=== PATIENT | female | born 2000 | race Caucasian/White ===

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

== ENCOUNTER 2024-08-21 08:47 | Outpatient (REF) | payer BC, SELFPAY ==
[2024-08-21 15:57] LABS: HCT 41.1 % (36.0-46.0); HGB 14.5 g/dL (11.2-15.7); MCH 31.1 pg (27.0-33.0); MCHC 35.3 % (32.0-36.0); MCV 88 fL (80-95); Platelet Count 282 10^3/uL (130-400); RBC 4.66 10^6/uL (3.93-5.22); RDW 11.8 % (11.7-14.6); RDW-SD 37.9 fL
[2024-08-21 16:58] LABS: ALT 56 U/L (14-59); AST 21 U/L (15-37); Albumin 4.3 g/dL (3.4-5.0); Alkaline Phosphatase 94 U/L (46-116); Anion Gap 7.1 mmol/L (3-11); BUN 9 mg/dL (7-18); Bilirubin, Total 1.06 mg/dL (0.2-1.0); CO2 27.9 mmol/L (21.0-32.0); CREATININE 0.9 mg/dL (0.55-1.02); Calcium 9.3 mg/dL (8.5-10.1); Calculated LDL 88 mg/dL (<100); Chloride 102 mmol/L (98-107); Cholesterol 164 mg/dL (<200); Ferritin 103 ng/mL (8-252); Glucose 96 mg/dL (74-106); HDL Cholesterol 57 mg/dL (40-60); Potassium 4.2 mmol/L (3.5-5.1); Sodium 137 mmol/L (136-145); Total Protein 7.5 g/dL (6.4-8.2); Triglyceride 99 mg/dL (<150)
[2024-08-21 17:03] LABS: Iron 101 ug/dL (50-170); Total Iron Binding Capacity 391 ug/dL (250-450); Transferrin Sat 26 % (15-50)
[2024-08-21 22:48] LABS: Hepatitis A Antibody IgM Negative (Negative); Hepatitis B Core Antibody Negative (Negative); Hepatitis B surface Ag Negative (Negative); Hepatitis C Ab w Rflx HCV PCR Negative (Negative)
== END 2024-08-21 08:48 | disposition home or self-care (01) ==
LOC: NCHCN 08:47
PROVIDERS: PCP Nurse Practitioner Family; Visit Provider Nurse Practitioner Family
DX: K76.0 Fatty (change of) liver, not elsewhere classified
CPT/HCPCS: 80053; 80061; 85027; 86704; 86709; 86803; 87340; 82728; 83036; 83540; 83550; 85610